=== PATIENT | female | born 1980 | race Caucasian/White ===

== ENCOUNTER 2018-03-10 05:38 | Inpatient (IN) | payer MEDICAID ==
[2018-03-10] MEDS ORDERED: MAGNESIUM SULFATE 20 GM/500 ML 500 ML IV (06:21)
[2018-03-10] MEDS: MAGNESIUM SULFATE 4 GM/100 ML 100 ML IV (06:30)
[2018-03-10] MEDS: LACTATED RINGER'S 1,000 ML IV (06:40)
[2018-03-10] MEDS ORDERED: MAGNESIUM SULFATE 4 GM/100 ML 100 ML (06:49)
[2018-03-10] MEDS ORDERED: OXYTOCIN 30 UNITS/LR 500 ML BAG IV (07:00)
[2018-03-10] MEDS: MAGNESIUM SULFATE 20 GM/500 ML 500 ML IV (07:24)
[2018-03-10] MEDS: BETAMET NA PHOS/AC(6 MG/ML) 5ML INJ IM (07:38)
[2018-03-10] MEDS ORDERED: METHYLERGONOVINE 0.2 MG INJ IM ×2 (08:00→15:30)
[2018-03-10] MEDS ORDERED: MISOPROSTOL 200 MCG TAB PR ×2 (08:00→15:30)
[2018-03-10] MEDS ORDERED: CARBOPROST 250 MCG INJ IM ×2 (08:00→15:30)
[2018-03-10] MEDS ORDERED: OXYTOCIN 30 UNITS/LR 500 ML IV ×2 (08:00→15:30)
[2018-03-10 08:49] LABS: ADD MAN DIFF? NO
[2018-03-10 08:58] LABS: ABNORMAL IP MESSAGE 1; BASOPHILS % 0.1 % (0.0-2.0); HEMATOCRIT 35.1 % (37.0-47.0); HEMOGLOBIN 11.5 g/dl (12.0-16.0); LYMPHOCYTES % 8.5 % (15.0-51.0); MEAN CORPUSCULAR HEMOGLOBIN 31.9 pg (29.0-33.0); MEAN CORPUSCULAR HGB CONC 32.8 g/dl (32.0-37.0); MEAN CORPUSCULAR VOLUME 97.2 fl (82.0-101.0); MEAN PLATELET VOLUME 13.7 fl (7.4-10.4); MONOCYTE # 0.5 10^3/ul (0.3-0.9); NEUTROPHIL # 10.1 10^3/ul (1.6-7.5); PLATELET COUNT 91 10^3/UL (140-415); RED BLOOD COUNT 3.61 10^6/ul (4.20-5.40); RED CELL DISTRIBUTION WIDTH 13.1 % (11.5-14.5)
[2018-03-10 08:58] LABS: WHITE BLOOD COUNT 11.6 10^3/ul (4.8-10.8)
[2018-03-10 09:02] LABS: POSITIVE DIFF @See below
[2018-03-10 09:36] LABS: INR 0.95; PROTIME 12.8 Sec (11.9-14.9)
[2018-03-10 09:37] LABS: PARTIAL THROMBOPLASTIN TIME 26.1 Sec (25.0-35.0)
[2018-03-10] MEDS ORDERED: FENTAnyl 50 MCG/ML VIAL (09:38)
[2018-03-10] MEDS ORDERED: PHENYLephrine (100 MCG/ML) 5ML SYG ×4 (09:39→10:44)
[2018-03-10] MEDS ORDERED: morphine SULFATE/PF (10 MG/10 ML) INJ ×2 (09:39→10:52)
[2018-03-10] MEDS ORDERED: BUPIVACAINE 0.75%/DEXT (SPINAL) 2 ML INJ (09:39)
[2018-03-10 09:59] LABS: ALANINE AMINOTRANSFERASE 19 IU/L (13-69); ALBUMIN 3.1 g/dl (3.3-4.9); ALBUMIN/GLOBULIN RATIO 0.91; ALKALINE PHOSPHATASE 138 IU/L (42-121); ANION GAP 13 (8-16); ASPARTATE AMINO TRANSFERASE 22 IU/L (15-46); BILIRUBIN,INDIRECT 0.3 mg/dl (0-1.1); BILIRUBIN,TOTAL 0.3 mg/dl (0.2-1.3); BLOOD UREA NITROGEN 12 mg/dl (7-20); CALCIUM 8.5 mg/dl (8.4-10.2); CARBON DIOXIDE 18 mmol/L (21-31); CHLORIDE 110 mmol/L (97-110); CREATININE 0.73 mg/dl (0.44-1.00); GLUCOSE 164 mg/dl (70-220); POTASSIUM 3.6 mmol/L (3.5-5.1); SODIUM 137 mmol/L (135-144); TOTAL PROTEIN 6.5 g/dl (6.1-8.1)
[2018-03-10] MEDS: CEFAZOLIN 2 GM/50 ML (PMX) 50 ML IVPB (10:00)
[2018-03-10] MEDS ORDERED: FAMOTIDINE 20 MG INJ (10:16)
[2018-03-10] MEDS ORDERED: ONDANSETRON 4 MG INJ (10:16)
[2018-03-10] MEDS ORDERED: DEXAMETHASONE 4 MG/ML 1 ML INJ (10:16)
[2018-03-10 11:24] LABS: Arterial Cord Blood pCO2 64.9 mmHG (25-50); CBA Base Excess -11.7 mmol/L; CBA COHb 0.3 %; CBA Oxygen Sat 18.9 mmHG; CBA Total Hemglobin 13.5 g/dl; Fraction OxyHgb Cord Arterial 18.6 %; MODE ROOM AIR; MetHgb Cord Arterial 1.5 %; Sample Type CBA; Site CORD
[2018-03-10 11:28] LABS: CBV Base Excess -9.1 mmol/L; CBV COHb 0.4 %; CBV Total Hemglobin 13.9 g/dl; Cord Blood Venous AADO2 59.8 mmHg; Cord Blood Venous pO2 18.1 mmHG (15.0-45.0); Fraction OxyHgb Cord Venous 29.5 %; MODE ROOM AIR; MetHgb Cord Venous 1.4 %; Sample Type CBV; Site CORD
[2018-03-10] MEDS: OXYTOCIN 30 UNITS/LR 500 ML IV ×4 (12:57→21:16)
[2018-03-10] MEDS ORDERED: HYDROmorphONE 0.5 MG/0.5 ML SYG IV ×2 (14:00)
[2018-03-10] MEDS ORDERED: NALOXONE (0.4 MG/ML) INJ IV (14:00)
[2018-03-10] MEDS ORDERED: DIPHENHYDRAMINE 50 MG INJ IV (14:00)
[2018-03-10] MEDS: KETOROLAC 30 MG INJ IV (14:30)
[2018-03-10 15:24] LABS: RAPID PLASMA REAGIN NONREACTIVE (NR)
[2018-03-10] MEDS ORDERED: OXYCODONE/ACETAMINOPHEN (5/325) TAB PO (15:30)
[2018-03-10] MEDS ORDERED: HYDROCODONE/APAP (5/325) TAB PO (15:30)
[2018-03-10] MEDS ORDERED: LANOLIN 7 GM TUBE TOP (15:30)
[2018-03-10] MEDS: IBUPROFEN 600 MG TAB PO (18:00)
[2018-03-10] MEDS: CEFAZOLIN 1 GM/50 ML (PMX) 50 ML IVPB (18:07)
[2018-03-10] MEDS: SENNA/DOCUSATE NA (8.6MG/50MG) TAB PO (21:03)
[2018-03-11] MEDS: OXYTOCIN 30 UNITS/LR 500 ML IV ×6 (01:32→23:00)
[2018-03-11] MEDS: KETOROLAC 30 MG INJ IV (05:10)
[2018-03-11] MEDS: IBUPROFEN 600 MG TAB PO ×4 (06:00→18:34)
[2018-03-11] MEDS: LACTATED RINGER'S 1,000 ML IV ×3 (06:46→19:00)
[2018-03-11 06:58] LABS: ADD MAN DIFF? NO
[2018-03-11 07:02] LABS: ABNORMAL IP MESSAGE 1; BASOPHILS % 0.1 % (0.0-2.0); HEMATOCRIT 33.8 % (37.0-47.0); LYMPHOCYTES # 1.4 10^3/ul (0.8-2.9); LYMPHOCYTES % 9.7 % (15.0-51.0); MEAN CORPUSCULAR HEMOGLOBIN 32.5 pg (29.0-33.0); MEAN CORPUSCULAR HGB CONC 32.5 g/dl (32.0-37.0); MEAN PLATELET VOLUME 13.9 fl (7.4-10.4); MONOCYTES % 7.1 % (0.0-11.0); NEUTROPHIL # 11.5 10^3/ul (1.6-7.5); NEUTROPHILS % 82.6 % (39.0-77.0); PLATELET COUNT 111 10^3/UL (140-415); RED BLOOD COUNT 3.38 10^6/ul (4.20-5.40); RED CELL DISTRIBUTION WIDTH 13.8 % (11.5-14.5)
[2018-03-11 07:02] LABS: WHITE BLOOD COUNT 13.9 10^3/ul (4.8-10.8)
[2018-03-11 07:06] LABS: POSITIVE DIFF @See below
[2018-03-11] MEDS: SENNA/DOCUSATE NA (8.6MG/50MG) TAB PO ×2 (10:17→21:15)
[2018-03-11] MEDS: OXYCODONE/ACETAMINOPHEN (5/325) TAB PO ×2 (16:41→22:14)
[2018-03-11] MEDS ORDERED: IBUPROFEN 600 MG TAB PO (18:00)
[2018-03-12] MEDS: IBUPROFEN 600 MG TAB PO ×5 (00:29→23:48)
[2018-03-12] MEDS: LACTATED RINGER'S 1,000 ML IV ×2 (01:30→08:14)
[2018-03-12] MEDS: OXYTOCIN 30 UNITS/LR 500 ML IV ×2 (03:10→08:14)
[2018-03-12] MEDS: OXYCODONE/ACETAMINOPHEN (5/325) TAB PO (03:13)
[2018-03-12] MEDS: SENNA/DOCUSATE NA (8.6MG/50MG) TAB PO ×2 (11:29→23:48)
[2018-03-13] MEDS: LACTATED RINGER'S 1,000 ML IV (01:10)
[2018-03-13] MEDS: OXYTOCIN 30 UNITS/LR 500 ML IV ×2 (01:10→02:34)
[2018-03-13] MEDS ORDERED: MISOPROSTOL 200 MCG TAB PR (01:30)
[2018-03-13] MEDS ORDERED: CARBOPROST 250 MCG INJ IM (01:30)
[2018-03-13] MEDS ORDERED: METHYLERGONOVINE 0.2 MG INJ IM (01:30)
[2018-03-13] MEDS ORDERED: OXYTOCIN 30 UNITS/LR 500 ML IV (01:30)
[2018-03-13] MEDS: HYDROCODONE/APAP (5/325) TAB PO (04:32)
[2018-03-13] MEDS: IBUPROFEN 600 MG TAB PO ×3 (05:54→17:33)
[2018-03-13] MEDS ORDERED: DIPHTH/TET/ACEL PERTUSS (ADULT) 0.5 ML VIAL IM* (09:00)
[2018-03-13] MEDS: SENNA/DOCUSATE NA (8.6MG/50MG) TAB PO ×2 (11:11→21:10)
[2018-03-14] MEDS: IBUPROFEN 600 MG TAB PO ×4 (00:37→13:50)
[2018-03-14] MEDS: SENNA/DOCUSATE NA (8.6MG/50MG) TAB PO (10:26)
[2018-03-14] MEDS: DIPHTH/TET/ACEL PERTUSS (ADULT) 0.5 ML VIAL IM* (10:40)
== END 2018-03-14 17:58 | disposition home or self-care (01) | DRG 766 ==
LOC: OBT 05:38 → L-D 05:38 → PP1 03-11 14:48 → OBT 06:03 → L-D 06:03 → PP1 16:07
PROVIDERS: Obstetrics & Gynecology
PROC: 10D00Z1 Extraction of Products of Conception, Low, Open Approach (ICD-10-PCS; principal; 2018-03-10)
DX: O60.14X0 Preterm labor third trimester with preterm delivery third trimester, not applicable or unspecified (principal); O34.211 Maternal care for low transverse scar from previous cesarean delivery; O24.429 Gestational diabetes mellitus in childbirth, unspecified control; Z3A.33 33 weeks gestation of pregnancy; Z37.0 Single live birth
CPT/HCPCS: 36415; 36600; 76815; 80053; 82803; 82962; 85025; 85610; 85730; 86592; 86850; 86900; 86901; 90715; 99464